=== PATIENT | female | born 1985 | race African-American/Black ===

== ENCOUNTER → 2017-06-20 | Emergency (ER) | payer MEDICAID, OTHER ==
[~2017-06-20] VITALS: Ht 177.8 cm; Wt 63.5 kg
[~2017-06-20] MED LIST: ALBUTEROL2.5 MG/3 M INH; LORazepam 0.5mg tab ORAL ONE; Lidocaine 1% 10mg/ml/Epi 0.005mg/ml 30ml vial INJ ONE; Lidocaine 1% Plain 30 ml INJ ONE
[2017-06-20 11:06] VITALS: BP 112/74
--- NOTE | 2017-06-20 11:29 | Emergency Room Report ---
History of Present Illness General Chief Complaint: Behavioral Complaint Source: Patient Present Illness HPI 32YOF BIBEMS after punched thru wooden table at home Patient under significant stress, caring for partner with CKD and multiple siblings Difficulty balancing 2 jobs plus pitting care family, has to fly out to [place] to take care of ailing mother as well Denies SI, HI, AVH No previous SI, psych history Denies punch thru table was to hurt herself States she was "trying to get out all my stress." Allergies: Coded Allergies: No Known Allergies (Unverified , 06/20/17) Patient History Past Medical History: none Past Surgical History: none Pertinent Family History: none Social History: Denies: smoking, alcohol use, drug use Now: No Immunizations: UTD Reviewed Nursing Documentation: PMH: Agreed; PSxH: Agreed Nursing Documentation-PMH Hx Asthma: Yes Review of Systems All Other Systems: negative except mentioned in HPI Physical Exam Vital Signs Date Time Temp Pulse Resp B/P (MAP) Pulse Ox O2 Delivery O2 Flow Rate FiO2 06/20/17 10:48 98.1 90 18 112/74 99 Room Air 98.1 Sp02 EP Interpretation: reviewed, normal General Appearance: normal inspection, well appearing, no apparent distress, alert, GCS 15, non-toxic Head: normocephalic, atraumatic Eyes: bilateral eye PERRL, bilateral eye EOMI ENT: normal ENT inspection, hearing grossly normal, normal pharynx, no angioedema, normal voice, TMs + canals normal, uvula midline, moist mucus membranes Neck: normal inspection, full range of motion, supple, thyroid normal, no meningismus, no bony tend Respiratory: normal inspection, lungs clear, normal breath sounds, no rhonchi, no respiratory distress, no retraction, no accessory muscle use, no wheezing, speaking full sentences Cardiovascular #1: regular rate, rhythm, no edema, no JVD, normal capillary refill Gastrointestinal: normal inspection, normal bowel sounds, non tender, soft, no mass, no peritonitis, non-distended, no guarding, no hernia, no pulsatile mass Genitourinary: no CVA tenderness Musculoskeletal: normal inspection, back normal, normal range of motion, no calf tenderness, pelvis stable, Hien's Sign negative, other - right forearm medial dorsal aspect: 2cm linear lac, no FB. No active bleeding Neurologic: normal inspection, alert, oriented x3, responsive, academic director III-XII nml as tested, motor strength/tone normal, cerebellar normal, normal gait, speech normal Psychiatric: normal inspection, judgement/insight normal, mood/affect normal, no suicidal/homicidal ideation, no delusions Skin: normal inspection, normal color, no rash Lymphatic: normal inspection, no adenopathy Procedures Laceration/Wound Repair Laceration/Wound Repair : Consent: Verbal Wound Location: upper extremity Wound's Depth, Shape: superficial Wound Explored: clean Betadine Prep?: Yes Anesthesia: Lidocaine w/ Epi Wound Debrided: minimal Wound Repaired With: sutures Suture Size/Type: 4:0 Number of Sutures: 2 Layer Closure?: No Sterile Dressing Applied?: Yes Splint Applied?: No Patient Tolerated: Well Complications: None Medical Decision Making Diagnostic Impression: Primary Impression: Behavioral change Additional Impression: Forearm laceration Qualified Codes: S51.811A - Laceration without foreign body of right forearm, initial encounter ER Course VSS, afebrile patient alert and oriented Patient called cooperative, intermittently crying Patient under a lot of stress, anxiety. Improved with low-dose by mouth Ativan Laceration to forearm was repaired in ER Tetanus updated Patient feels better Not on 5150 Patient was not attempting to hurt herself, not a danger to herself at this time No psych history Advised to return in 5-7 days for suture removal ER course: Patient has remained stable during ED stay. Disposition: Patient is to be discharged to home. Patient is instructed to follow up with their primary care doctor within 5 days. Patient is instructed to follow up with Er for suture removal in 5-7 days Strict return precautions discussed with patient such as fever, chills, worsening/severe pain, nausea, vomiting, which may indicate severe illness. Patient verbalizes understanding and agrees with plan. Please note that this Emergency Department Report was dictated using [employer] puncher technology software, occasionally this can lead to erroneous entry secondary to interpretation by the dictation equipment Last Vital Signs Date Time Temp Pulse Resp B/P (MAP) Pulse Ox O2 Delivery O2 Flow Rate FiO2 06/20/17 11:06 98.1 18 112/74 99 Room Air 98.1 06/20/17 10:48 90 Status: improved Disposition: HOME, SELF-CARE MOIZ RAMOS M.D. Jun 20, 2017 11:29
[2017-06-20 11:59] VITALS: BP 113/83
== END | disposition home or self-care (01) ==
LOC: EDBD 10:53 → EMR 12:10
DX: S51.811A Laceration without foreign body of right forearm, initial encounter (principal); R46.89 Other symptoms and signs involving appearance and behavior; W22.8XXA Striking against or struck by other objects, initial encounter; Y93.9 Activity, unspecified; Y92.009 Unspecified place in unspecified non-institutional (private) residence as the place of occurrence of the external cause
CPT/HCPCS: 12001; 99284; J2001; Z7502